=== PATIENT | male | born 1950 | race Caucasian/White ===

== ENCOUNTER → 2017-03-13 | Outpatient (CLI) | payer OTHER ==
[~2017-03-13] MED LIST: ASPI-496 PO; ASPI-515 PO; CLOP75TA52 PO; HYDR-3237 PO; LANS30CA PO; LISI2.5T PO; NITR0.4T SL; ONDA4TAB7 PO; SIMV20TA PO; TICA90TA PO; TIZA4TAB PO; VICODIN PO
== END ==
LOC: CFH 08:16
PROVIDERS: ATTEND Licensed Practical Nurse
DX: Z12.2 Encounter for screening for malignant neoplasm of respiratory organs (principal); F17.210 Nicotine dependence, cigarettes, uncomplicated
CPT/HCPCS: G0297

== ENCOUNTER → 2020-01-17 | Outpatient (CLI) | payer MEDICARE ==
[~2020-01-17] MED LIST changes: -NITR0.4T SL; +NITR0.4T41 SL; -TIZA4TAB PO; +TIZA4TAB2 PO
== END | disposition home or self-care (01) ==
LOC: CFH 06:54
PROVIDERS: ATTEND Internal Medicine Cardiovascular Disease
DX: I08.8 Other rheumatic multiple valve diseases (principal); I10 Essential (primary) hypertension; I25.10 Atherosclerotic heart disease of native coronary artery without angina pectoris; Z95.818 Presence of other cardiac implants and grafts
CPT/HCPCS: 93306

== ENCOUNTER 2020-06-27 08:26 | Emergency (ER) | payer MEDICARE ==
[~2020-06-27] VITALS: Ht 170.2 cm; Wt 84.0 kg
[~2020-06-27 08:26] MED LIST changes: -ASPI-515 PO; +ASPI-963 PO
[2020-06-27] MEDS ORDERED: SODIUM CHLORIDE FLUSH 10ML SYR IVF ONE (09:00)
[2020-06-27] MEDS ORDERED: HYDROmorphone 1 MG/ML, 1ML INJ IV ONE (09:00)
[2020-06-27] MEDS ORDERED: ONDANSETRON 2MG/ML, 2ML IVPush ONE (09:00)
--- NOTE | 2020-06-27 09:01 | NUR ---
ASSUMED CARE OF PT
[2020-06-27] MEDS ORDERED: HYDROmorphone 1 MG/ML, 1ML INJ ONE (09:04)
[2020-06-27] MEDS ORDERED: ONDANSETRON 2MG/ML, 2ML ONE (09:05)
[2020-06-27 09:12] LABS: ALBUMIN 4.3 g/dL (3.4-5.0); ANION GAP 6 mmol/L (5-15); CALCIUM 9.5 mg/dL (8.5-10.1); CHLORIDE 109 mmol/L (98-107)
[2020-06-27 09:15] LABS: ALANINE AMINOTRANSFERASE 28 U/L (12-78); ALKALINE PHOSPHATASE 118 U/L (45-117); BILIRUBIN,TOTAL 0.7 mg/dL (0.2-1.0); TOTAL PROTEIN 7.6 g/dL (6.4-8.2)
[2020-06-27 09:30] LABS: BASOPHILS % (AUTO) 1 % (0-1); EOSINOPHILS % (AUTO) 1 % (1-7); LYMPHOCYTES % (AUTO) 25 % (22-44); MEAN CORPUSCULAR HEMOGLOBIN 29.7 pg (27.5-34.5); MEAN CORPUSCULAR HGB CONC 34.6 g/dL (33.2-36.2); MEAN PLATELET VOLUME 9.1 fL (7.4-10.4); MONOCYTES % (AUTO) 5 % (2-9); NEUTROPHILS % (AUTO) 67 % (42-75); PLATELET COUNT 196 x10^3/uL (130-400); RED BLOOD COUNT 5.56 x10^6/uL (4.38-5.82); RED CELL DISTRIBUTION WIDTH 13.7 % (9.4-14.8)
--- NOTE | 2020-06-27 09:32 | NUR ---
Alejandra cruz in [facility] - 06/27/20 at 0933 by KACI Pt returned from CT, pain returning.
--- NOTE | 2020-06-27 09:33 | NUR ---
Pt gone to CT
[2020-06-27 09:35] LABS: MD NO
[2020-06-27] MEDS ORDERED: OMNIPAQUE 350 MG/ML, 100ML BOTTLE ONE (09:36)
[2020-06-27] MEDS ORDERED: D3/E1CAP PO (10:05)
[2020-06-27] MEDS ORDERED: CLOP75TA PO (10:05)
[2020-06-27] MEDS ORDERED: ATOR40TA78 PO (10:05)
--- NOTE | 2020-06-27 10:35 | NUR ---
URINE COLLECTED AND SENT TO LAB. PT RESTING WITH NO COMPLAINTS.
[2020-06-27 10:45] LABS: MICROSCOPIC NOT IND
[2020-06-27 12:52] VITALS: BP 147/99
== END 2020-06-27 12:56 | disposition home or self-care (01) ==
LOC: ED 09:19
DX: I71.4 Abdominal aortic aneurysm, without rupture (principal); I10 Essential (primary) hypertension; K41.91 Unilateral femoral hernia, without obstruction or gangrene, recurrent; G89.29 Other chronic pain; R10.33 Periumbilical pain; Z87.891 Personal history of nicotine dependence
CPT/HCPCS: 36415; 74177; 80053; 81003; 83605; 83690; 85025; 93005; 96374; 96375; 99285; J1170; J2405; Q9967